=== PATIENT | male | born 1940 | race Caucasian/White ===

== ENCOUNTER → 2020-08-06 10:37 | Outpatient (BNVA) | payer MEDICARE, SELFPAY | PROVIDERS: Family Provider Internal Medicine; PCP Internal Medicine; Visit Provider Specialist | DX: M79.641 Pain in right hand (principal); M79.642 Pain in left hand; R20.0 Anesthesia of skin; G56.03 Carpal tunnel syndrome, bilateral upper limbs | CPT/HCPCS: 95910 ==

== ENCOUNTER 2022-01-29 12:43 | Outpatient (CLI) | payer MEDICARE, SELFPAY ==
--- NOTE | 2022-01-29 13:02 | CT_ITS ---
WS: [id number] CT ABDOMEN PELVIS TECHNIQUE: Contrast-enhanced CT of the abdomen and pelvis with coronal and sagittal reformatted image s. CLINICAL INFORMATION: GROSS HEMATURIA COMPARISON: None. DLP: 1191.[address] scans at [facility] use at least one of these dose optimization techniques: automated e xposure control; mA and/or kV adjustment per patient size (includes targeted exams where dose is matc hed to clinical indication); or iterative reconstruction. FINDINGS: Enhancing heterogeneous enlarged prostate measuring 3.8 x 4.6 cm. Indentation on the bladder. Recomme nd correlation PSA. Sigmoid diverticulosis. No definite evidence of acute diverticulitis. LEFT femora l hernia containing a small knuckle of herniated sigmoid colon and accompanying omental fat. No evide nce of inflammatory stranding or edema. No associated fluid. Narrowing of the sigmoid colon with a he rnia neck. Hernia neck measures approximately 12 mm. Recommend surgical consultation. Small fat-containing LEFT inguinal hernia. No evidence of high-grade small or large bowel obstruction. Mild diffuse fatty infiltration of the liver with heterogeneous parenchymal enhancement. Gallbladder is contracted. Moderate esophageal hiatal hernia. Cardiomegaly. Lung bases are well aerated. Adrenal glands are normal. Fatty atrophy of the pancreas. Normal renal parenchymal enhancement. No hydronephr osis. Normal caliber abdominal aorta. Retroaortic LEFT renal vein. Small bladder diverticulum along the LEFT dorsal lateral bladder measuring 10 x 14 mm. This can be fu rther evaluated with cystoscopy. Additional small LEFT anterior urinary bladder hernia along the prox imal inguinal canal. Incidental fat-containing umbilical hernia. Disc space narrowing worse at L3-L5. CT/CT abdomen pelvis w con* [id number] IMPRESSION: 1. Dorsal lateral bladder diverticulum measuring 14 x 10 mm. 2. Heterogeneous mild prostate enlargement measuring 3.8 x 4.5 cm with mild th ickening of the seminal vesicles. Recommend correlation PSA. 3. Small LEFT urinary bladder hernia with tenting along the LEFT proximal ingu inal canal. Recommend correlation with hematuria. 4. LEFT femoral hernia containing a small knuckle of herniated sigmoid colon a nd herniated omental fat. Mild tethering of the sigmoid colon in this area. No evidence of acute strangulation. Recommend correlation LEFT inguinal pain and s urgical consultation. 5. Normal renal parenchymal enhancement. No hydronephrosis. No obstructing zehra al or ureteral calculi. 6. Sigmoid diverticulosis. No evidence of acute diverticulitis. 7. Diffuse fatty infiltration liver with coarse hepatic parenchyma. Recommend correlation with liver function tests. 8. Moderate esophageal hiatal hernia.
[2022-01-29] MEDS: iohexol 350 mg/mL 100 mL Btl IV (14:58)
[2022-01-29 14:59] LABS: Blood Urea Nitrogen 28 mg/dL (8-23)
== END 2022-01-29 12:44 | disposition home or self-care (01) ==
PROVIDERS: PCP Internal Medicine; Visit Provider Internal Medicine
DX: R31.0 Gross hematuria (principal); K44.9 Diaphragmatic hernia without obstruction or gangrene; K76.0 Fatty (change of) liver, not elsewhere classified; K57.30 Diverticulosis of large intestine without perforation or abscess without bleeding; K41.90 Unilateral femoral hernia, without obstruction or gangrene, not specified as recurrent; N32.89 Other specified disorders of bladder; N40.0 Benign prostatic hyperplasia without lower urinary tract symptoms; N32.3 Diverticulum of bladder
CPT/HCPCS: 74177; 82565; 84520

== ENCOUNTER 2022-03-24 15:17 | Outpatient (CLI) | payer MEDICARE, SELFPAY | END 2022-03-24 15:18 | disposition home or self-care (01) | LOC: LAB 15:29 | PROVIDERS: PCP Internal Medicine; Visit Provider Nurse Practitioner Family | DX: R31.0 Gross hematuria (principal) | CPT/HCPCS: 87086 ==

== ENCOUNTER 2022-06-26 15:11 | Emergency (ER) | payer MEDICARE, SELFPAY ==
[2022-06-26 15:16] VITALS: BMI 28.2
--- NOTE | 2022-06-26 15:18 | W.ED.WEAKNES ---
HPI - Weakness General: Chief complaint: General Medical Stated complaint: weakness/stroke symptoms Time Seen by Provider: 06/26/22 15:18 History of Present Illness: Mr. Briggs is an 81-year-old gentleman on Eliquis presenting to the emergency department for strokelike symptoms. He reports a few days ago noting some back pain with radicular radiation down the leg however this resolved. This morning at perhaps 1130 or noon he had onset of abnormal feeling in his right foot like it was heavy and also his right arm like it felt odd. This initially was moderate to severe however is mildly improved though still present. Denies similar episodes in the past. No other specific changes in health, exacerbating, or alleviating factors identified. Onset (ago): hour(s) Duration: improved Location: RUE and RLE Severity: moderate Quality: other Relieving factors: none Exacerbating factors: none Review of Systems General: Reports: 10 or more systems reviewed and unremarkable except in HPI and below PFSH ED PFSH: Medical History (Updated 07/09/22 @ 00:15 by Francisco Murray MD) HLD (hyperlipidemia) HTN (hypertension) Surgical History (Updated 07/09/22 @ 00:16 by Francisco Murray MD) No significant past surgical history Physical Exam Const: COMMON NORMALS: alert GENERAL APPEARANCE: cooperative and well developed HENMT: COMMON NORMALS: normocephalic and atraumatic HEAD & SCALP: normocephalic and atraumatic THROAT: posterior oropharynx normal Eye: COMMON NORMALS: conjunctivae normal CONJUNCTIVA: Yes conjunctivae normal SCLERA: sclerae normal Neck/C-Spine: COMMON NORMALS: supple GENERAL: Yes trachea midline Resp: COMMON NORMALS: normal respiratory effort EFFORT & INSPECTION: Yes able to speak in complete sentences Cardio: COMMON NORMALS: regular rate and regular rhythm RATE: regular rate RHYTHM: regular rhythm GI: COMMON NORMALS: Soft to palpation PALPATION: Yes Soft to palpation and No Tenderness to palpation present (GI) PERCUSSION: normal to percussion Extremity: GENERAL: Yes normal exam except as noted and No edema Neuro: COMMON NORMALS: moves all extremities SENSORIUM/ORIENTATION: Yes alert and No Orientation impaired OTHER: Subjective right upper extremity weakness, subjective right lower extremity weakness, 75% sensation right lower extremity compared to contralateral side Psych: COMMON NORMALS: mental status grossly normal and Normal thought process present THOUGHT PROCESS: Normal thought process present Course Vital Signs: Vital signs: Vital Signs Temperature 97.1 F L 06/26/22 15:24 Pulse Rate 65 06/26/22 19:26 Respiratory Rate 16 06/26/22 19:26 Blood Pressure 154/98 06/26/22 19:26 Pulse Oximetry 94 06/26/22 19:26 Oxygen Delivery Me thod 06/26/22 18:00 MDM - Weakness Medical Decision Making 81-year-old gentleman presenting with generalized weakness and strokelike symptoms. Subjective findings on exam, low NIHSS score and patient is on Eliquis as a contraindication for tPA. EKG notable for paced rhythm Labs with unremarkable hematologic and metabolic panel. Negative range 2-hour delta troponin. Hematuria present. Chest x-ray with no lobar consolidation or pneumothorax. CT/CTA with no evidence of hemorrhage or mass, there is no large vessel stenosis or occlusion intracranially, mild stenosis of the internal carotids discussed with patient. Upon reevaluation patient feels back to normal. Most likely etiology of symptoms is TIA. I offered admission which she declined. I will plan to initiate statin for mention of future strokes and the patient continues medications. The results of ED evaluation were discussed with the patient including prescriptions and/or symptomatic cares (if applicable) including appropriate and responsible use, followup plan, and return precautions. The patient verbalized understanding and felt safe for discharge. Medical Records I reviewed the patient's medical records. Lab Data I reviewed the patient's lab results. 06/26/22 15:35 06/26/22 15:35 Radiology Impressions Chest X-Ray 06/26/22 15:28 Impression: Cardiomegaly and atherosclerosis. Head/Neck CTA 06/26/22 15:28 IMPRESSION: No large vessel stenosis or occlusion. IMPRESSION: Mild stenosis at the origins of the internal carotid arteries. No severe stenosis or occlusion. REFERENCES: NASCET CRITERIA. The degree of stenosis in the cervical segment of the internal carotid artery is based on NASCET criteria. Normal is no stenosis. Mild is less than 50% stenosis. Moderate is 50-69% stenosis. Severe is 70% to 99% stenosis. Total occlusion is no detectable patent lumen. Laboratory Results WBC 7.4 10^3/uL (4.0-10.0) 06/26/22 15:35 RBC 5.17 10^6/uL (4.1-5.3) 06/26/22 15:35 Hgb 14.8 g/dL (11.7-16.6) 06/26/22 15:35 Hct 45.6 % (42.0-52.0) 06/26/22 15:35 MCV 88.2 fl (80-94) 06/26/22 15:35 MCH 28.6 pg (28.0-34.0) 06/26/22 15:35 MCHC 32.5 g/dL (30.0-36.0) 06/26/22 15:35 RDW 12.2 % (12.1-15.1) 06/26/22 15:35 Plt Count 211 10^3/cmm (130-400) 06/26/22 15:35 MPV 9.4 fL (7.4-10.4) 06/26/22 15:35 Neut % (Auto) 63.5 % 06/26/22 15:35 Lymph % (Auto) 23.2 % 06/26/22 15:35 [place] % (Auto) 11.3 % 06/26/22 15:35 Eos % (Auto) 1.3 % 06/26/22 15:35 Baso % (Auto) 0.4 % 06/26/22 15:35 Neut # (Auto) 4.71 10^3/uL (1.8-7.7) 06/26/22 15:35 Lymph # (Auto) 1.7 10^3/uL (0.8-4.8) 06/26/22 15:35 [place] # (Auto) 0.8 10^3/uL (0.2-0.9) 06/26/22 15:35 Eos # (Auto) 0.1 10^3/uL (0.0-0.8) 06/26/22 15:35 Baso # (Auto) 0.0 10^3/uL (0.0-0.1) 06/26/22 15:35 Nucleated RBC % (auto) 0 % 06/26/22 15:35 Nucleated RBCs # 0.0 /100WBC 06/26/22 15:35 PT 16.50 SECONDS (12.1-14.9) H 06/26/22 15:35 INR 1.28 (0.8-1.2) H 06/26/22 15:35 APTT 32.6 SECONDS (23.9-36.7) 06/26/22 15:35 Sodium 136 mmol/L (136-145) 06/26/22 15:35 Potassium 4.6 mmol/L (3.5-5.1) 06/26/22 15:35 Chloride 97 mmol/L (98-107) L 06/26/22 15:35 Carbon Dioxide 26 mmol/L (22-29) 06/26/22 15:35 Anion Gap 17.6 (5-19) 06/26/22 15:35 BUN 16 mg/dL (8-23) 06/26/22 15:35 Creatinine 1.0 mg/dL (0.7-1.2) 06/26/22 15:35 GFR Calculation Not Reportable 06/26/22 15:35 Glucose 107 mg/dL (65-115) 06/26/22 15:35 Calculated Osmolality 284 mOsm/kg (285-295) L 06/26/22 15:35 Calcium 9.1 mg/dL (8.5-10.5) 06/26/22 15:35 Total Bilirubin 0.7 mg/dL (0.15-1.2) 06/26/22 15:35 AST 26 U/L (0-40) 06/26/22 15:35 ALT 17 U/L (0-41) 06/26/22 15:35 Alkaline Phosphatase 70 U/L (40-130) 06/26/22 15:35 Troponin T Baseline 21 ng/L (0-15) H 06/26/22 15:35 Troponin T 120 Minute 21.20 ng/L (0-15) H 06/26/22 17:40 Delta Troponin T 0.20 ABS# (0-10) 06/26/22 17:40 C-Reactive Protein 5.0 mg/L (0.0-4.9) H 06/26/22 15:35 NT-Pro-B Natriuret Pep 1949 pg/mL (0-450) H 06/26/22 15:35 Total Protein 6.8 g/dL (6.6-8.7) 06/26/22 15:35 Albumin 4.3 g/dL (3.5-5.2) 06/26/22 15:35 Globulin 2.5 g/dL (1.3-4.6) 06/26/22 15:35 Procalcitonin 0.02 ng/mL (0-0.5) 06/26/22 15:35 TSH 1.95 uIU/mL (0.27-4.20) 06/26/22 15:35 Urine Color Yellow (Yellow) 06/26/22 17:00 Urine Appearance Hazy (CLEAR) A 06/26/22 17:00 Urine pH 6 (5-7) 06/26/22 17:00 Ur Specific [place] 1.015 (1.005-1.030) 06/26/22 17:00 Urine Protein Neg (Negative) 06/26/22 17:00 Urine Glucose (UA) Norm (Normal) 06/26/22 17:00 Urine Ketones Negative (Negative) 06/26/22 17:00 Urine Blood 3+ (Negative) H 06/26/22 17:00 Urine Nitrate Negative (Negative) 06/26/22 17:00 Urine Bilirubin Neg (Negative) 06/26/22 17:00 Urine Urobilinogen Norm mg/dL (Negative) 06/26/22 17:00 Ur Leukocyte Esterase Negative (Negative) 06/26/22 17:00 Urine RBC 25-40 /hpf (0-2) H 06/26/22 17:00 Urine WBC 0-4 /hpf (0-5) H 06/26/22 17:00 Ur Squamous Epith Cells 0-4 /hpf (0-5) H 06/26/22 17:00 Amorphous Sediment Not Reportable 06/26/22 17:00 Urine Bacteria Trace /hpf (NONE) 06/26/22 17:00 Discharge Plan Discharge Patient Disposition: Home Clinical Impression: Brain TIA, Hematuria, Carotid artery disease Condition: Stable Prescriptions: New atorvastatin 80 mg tablet 80 mg PO QPM Qty: 30 2RF No Action pantoprazole 40 mg tablet,delayed release (DR/EC) 40 mg PO BID multivitamin Tablet 1 tab PO DAILY gabapentin 100 mg capsule 200 mg PO BID fluticasone propionate [Flonase Allergy Relief] 50 mcg/actuation spray,suspension 1 spray intranasal BID Rx Instructions: administer into each nostril tamsulosin 0.4 mg capsule 0.4 mg PO QPM metoprolol tartrate 25 mg tablet 25 mg PO DAILY Eliquis 5 mg tablet 5 mg PO DAILY Discharge Orders: Discharge ED (Routine); Ordered 06/26/22 Ordered By: Francisco Murray Referrals: Alyssa Nassar MD [Primary Care Provider] - Discharge Diet: Usual diet Discharge Activity: Resume usual activity Patient Instructions: Atorvastatin (By mouth), Transient Ischemic Attack (ED), Hematuria (ED) Activity Restrictions/Additional Instructions: Thank you for visiting the emergency department. You were seen and evaluated for strokelike symptoms. The exact cause of the symptoms is unclear however given resolution is most likely secondary to a transient ischemic attack. As discussed there is some risk of recurrence or permanent stroke however you are electing to have further outpatient evaluation. I will message case management for follow-up with neurology. I will start you on atorvastatin. Also take 81 mg aspirin, be cautious as this can increase bleeding risk with Eliquis. You do have evidence of blood in your urine which should be evaluated in the outpatient setting. Return to the emergency department for any new neurologic symptoms or anything else that you are concerned about and feel needs emergency department evaluation. Coding Level of Care Code ED Pull Out Operator for Ramu Abdi
[2022-06-26 15:21] VITALS: BP 165/98; PULSE 65; RESP 16; O2SAT 98
[2022-06-26 15:24] VITALS: TEMP 36.2
--- NOTE | 2022-06-26 15:28 | XR_ITS ---
WS: [id number] Portable AP upright chest, 06/26/2022 Clinical Data: stroke like symptoms Comparison: None. Findings: No nodules, masses or effusions are seen. The heart is enlarged. The pulmonary vascularity is not increased. No pneumonia or pneumothorax is seen. There is a single lead pacemaker in good posi tion. The aortic arch and descending thoracic aorta shows calcification and tortuosity. There are mable gical clips at the gastroesophageal junction. XR/XR chest 1V portable [id number] Impression: Cardiomegaly and atherosclerosis.
--- NOTE | 2022-06-26 15:28 | CTR_ITS ---
PROCEDURE INFORMATION: Exam: CTA Head With Contrast, Arteriography Exam date and time: 06/26/2022 4:42 PM Age: 81 years old Clinical indication: Patient HX: PT C/O right sided weakness; Heavy right foot; SOB; Stroke like symptoms; Additional info: Rue/rle weakness TECHNIQUE: Imaging protocol: Computed tomographic angiography of the head with contrast. Exam focused on the arteries. 3D rendering (Not supervised by radiologist): MIP and/or 3D reconstructed images were created by the technologist. Radiation optimization: All CT scans at this facility use at least one of these dose optimization techniques: automated exposure control; mA and/or kV adjustment per patient size (includes targeted exams where dose is matched to clinical indication); or iterative reconstruction. Contrast material: OMNI 350; Contrast volume: 100 ml; Contrast route: INTRAVENOUS (IV); Other protocol: This patient has received [address] and 0 known cardiac nuclear medicine studies in the 12 months prior to the current study. COMPARISON: No relevant prior studies available. RADIATION DOSE METRICS: Total DLP (mGy-cm): 1050.65 FINDINGS: ANTERIOR CIRCULATION: Right internal carotid artery: Intracranial segment is patent with no significant stenosis. No aneurysm. Right middle cerebral artery: No occlusion or significant stenosis. No aneurysm. Right anterior cerebral artery: No occlusion or significant stenosis. No aneurysm. Left internal carotid artery: Intracranial segment is patent with no significant stenosis. No aneurysm. Left middle cerebral artery: No occlusion or significant stenosis. No aneurysm. Left anterior cerebral artery: No occlusion or significant stenosis. No aneurysm. POSTERIOR CIRCULATION: Right vertebral artery: No occlusion or significant stenosis. No aneurysm. Left vertebral artery: No occlusion or significant stenosis. No aneurysm. Basilar artery: No occlusion or significant stenosis. No aneurysm. Right posterior cerebral artery: No occlusion or significant stenosis. No aneurysm. Left posterior cerebral artery: No occlusion or significant stenosis. No aneurysm. Brain: No hemorrhage. No edema. Moderate diffuse cerebral atrophy and mild sequela of chronic small vessel ischemic disease. No mass effect. Cerebral ventricles: No ventriculomegaly. Bones/joints: Unremarkable. No acute fracture. Soft tissues: Unremarkable. PROCEDURE INFORMATION: Exam: CTA Neck With Contrast Exam date and time: 06/26/2022 4:42 PM Age: 81 years old Clinical indication: Patient HX: PT C/O right sided weakness; Heavy right foot; SOB; Stroke like symptoms; Additional info: Rue/rle weakness TECHNIQUE: Imaging protocol: Computed tomographic angiography of the neck with contrast. 3D rendering (Not supervised by radiologist): MIP and/or 3D reconstructed images were created by the technologist. Radiation optimization: All CT scans at this facility use at least one of these dose optimization techniques: automated exposure control; mA and/or kV adjustment per patient size (includes targeted exams where dose is matched to clinical indication); or iterative reconstruction. Contrast material: OMNI 350; Contrast volume: 100 ml; Contrast route: INTRAVENOUS (IV); Other protocol: This patient has received [address] and 0 known cardiac nuclear medicine studies in the 12 months prior to the current study. COMPARISON: CR XR chest 1V portable [id number] 06/26/2022 3:53 PM RADIATION DOSE METRICS: Total DLP (mGy-cm): 1050.65 FINDINGS: Right common carotid artery: No stenosis. No dissection or occlusion. Right internal carotid artery: Mild stenosis at the origin of the internal carotid artery. No dissection or occlusion. Right external carotid artery: No occlusion or stenosis of the origin. Left common carotid artery: No stenosis. No dissection or occlusion. Left internal carotid artery: Mild stenosis at the origin of the internal carotid artery. No dissection or occlusion. Left external carotid artery: No occlusion or stenosis of the origin. Right vertebral artery: No stenosis. No dissection or occlusion. Left vertebral artery: No stenosis. No dissection or occlusion. Soft tissues: Normal. No significant soft tissue swelling. Bones/joints: No acute fracture. CT/CT angio headneck* [id number] IMPRESSION: No large vessel stenosis or occlusion. IMPRESSION: Mild stenosis at the origins of the internal carotid arteries. No severe stenosis or occlusion. REFERENCES: NASCET CRITERIA. The degree of stenosis in the cervical segment of the internal carotid artery is based on NASCET criteria. Normal is no stenosis. Mild is less than 50% stenosis. Moderate is 50-69% stenosis. Severe is 70% to 99% stenosis. Total occlusion is no detectable patent lumen.
--- NOTE | 2022-06-26 15:29 | ECG_ITS ---
[facility] Test Date: 2022-06-26 Pat Name: Tyler Briggs Department: Room: Gender: Male [employer]is [employer] C[employer] Hand: : 1940 Requested By: Francisco Murray Order Number: [id number] Parks MD: Genesis Butler M.D. Measurements Intervals [place] Rate: 65 P: 0 OK: 0 QRS: -84 QRSD: 186 T: 82 QT: 451 QTc: 472 Interpretive Statements ELECTRONIC VENTRICULAR PACEMAKER ABNORMAL RHYTHM ECG Compared to ECG 06/25/2016 13:29:23 Sinus bradycardia no longer present Sinus arrhythmia no longer present Left-axis deviation no longer present Electronically Signed On 06-26-2022 16:42:41 SMOKE TESTER by Genesis Butler M.D. [id number]
[2022-06-26 15:48] LABS: Basophils % 0.4 %; Eosinophils # 0.1 10^3/uL (0.0-0.8); Eosinophils % 1.3 %; Hematocrit 45.6 % (42.0-52.0); Hemoglobin 14.8 g/dL (11.7-16.6); Lymphocytes # 1.7 10^3/uL (0.8-4.8); Lymphocytes % 23.2 %; Mean Corpuscular HGB Conc 32.5 g/dL (30.0-36.0); Mean Corpuscular Hemoglobin 28.6 pg (28.0-34.0); Mean Corpuscular Volume 88.2 fl (80-94); Mean Platelet Volume 9.4 fL (7.4-10.4); Monocytes # 0.8 10^3/uL (0.2-0.9); Monocytes % 11.3 %; Neutrophils # 4.71 10^3/uL (1.8-7.7); Neutrophils % 63.5 %; Nucleated Red Blood Cells % 0 %; Platelet Count 211 10^3/cmm (130-400); Red Blood Count 5.17 10^6/uL (4.1-5.3); Red Cell Distribution Width 12.2 % (12.1-15.1); White Blood Count 7.4 10^3/uL (4.0-10.0)
[2022-06-26 16:04] LABS: INR 1.28 (0.8-1.2)
[2022-06-26 16:05] LABS: Partial Thromboplastin Time 32.6 SECONDS (23.9-36.7)
[2022-06-26 16:07] LABS: Troponin(5th) Baseline 21 ng/L (0-15)
[2022-06-26 16:18] LABS: NT Pro B Type Natriuretic Pept 1949 pg/mL (0-450); Procalcitonin 0.02 ng/mL (0-0.5); Thyroid Stimulating Hormone 1.95 uIU/mL (0.27-4.20)
[2022-06-26 16:34] LABS: Alanine Aminotransferase 17 U/L (0-41); Albumin Level 4.3 g/dL (3.5-5.2); Alkaline Phosphatase 70 U/L (40-130); Anion Gap 17.6 (5-19); Aspartate Amino Transferase 26 U/L (0-40); Blood Urea Nitrogen 16 mg/dL (8-23); Calcium 9.1 mg/dL (8.5-10.5); Carbon Dioxide 26 mmol/L (22-29); Chloride 97 mmol/L (98-107); Globulin 2.5 g/dL (1.3-4.6); Glucose 107 mg/dL (65-115); Osmolality Calculated 284 mOsm/kg (285-295); Potassium 4.6 mmol/L (3.5-5.1); Sodium 136 mmol/L (136-145); Total Bilirubin 0.7 mg/dL (0.15-1.2); Total Protein 6.8 g/dL (6.6-8.7)
[2022-06-26 16:40] VITALS: BP 133/81; PULSE 65; RESP 16; O2SAT 96
[2022-06-26] MEDS: iohexol 350 mg/mL 500 mL Btl (per mL) IV (16:49)
[2022-06-26 18:00] VITALS: BP 171/98; PULSE 65; O2SAT 97
[2022-06-26 18:06] LABS: Add Urine Culture? Yes; Add Urine Microscopic? YES; Bacteria Urine TRACE /hpf; Bilirubin Urine Neg (Negative); Blood Urine 3+ (Negative); Glucose Urine UA Norm (Normal); Ketones Urine Negative (Negative); Leukocyte Esterase Urine Negative (Negative); Nitrate Urine Negative (Negative); Protein Urine Neg (Negative); RBC Urine 25-40 /hpf (0-2); Specific Gravity, Urine 1.015 (1.005-1.030); Squamous Epithelial Cell Urine 0-4 /hpf (0-5); Urine Appearance Hazy (CLEAR); Urine Color Yellow (Yellow); Urobilinogen Urine Norm (Negative); WBC Urine 0-4 /hpf (0-5); pH Urine 6 (5-7)
--- NOTE | 2022-06-26 18:40 | ECG_ITS ---
[facility] Test Date: 2022-06-26 Pat Name: Tyler Briggs Department: Room: Gender: Male Tearoom Host: : 1940 Requested By: Francisco Murray Order Number: [id number] Parks MD: Genesis Butler M.D. Measurements Intervals [place] Rate: 65 P: 0 NC: 0 QRS: -79 QRSD: 180 T: 81 QT: 468 QTc: 488 Interpretive Statements ELECTRONIC VENTRICULAR PACEMAKER ABNORMAL RHYTHM ECG Compared to ECG 06/26/2022 15:35:49 No significant changes Electronically Signed On 06-26-2022 23:20:32 CIVIL TECHNICIAN by Genesis Butler M.D. [id number]
[2022-06-26 19:26] VITALS: BP 154/98; PULSE 65; RESP 16; O2SAT 94
== END 2022-06-26 19:53 | disposition home or self-care (01) ==
PROVIDERS: Emergency Provider Emergency Medicine; PCP Internal Medicine
DX: G45.9 Transient cerebral ischemic attack, unspecified (principal); I77.89 Other specified disorders of arteries and arterioles; R31.9 Hematuria, unspecified; Z79.01 Long term (current) use of anticoagulants; I10 Essential (primary) hypertension; E78.5 Hyperlipidemia, unspecified
CPT/HCPCS: 70496; 70498; 71045; 80053; 81001; 83880; 84145; 84443; 84484; 85025; 85610; 85730; 86140; 87086; 93005; 99285; Q9967

== ENCOUNTER 2022-09-10 14:22 | Oncology outpatient (recurring) (ONCR) | payer MEDICARE, SELFPAY ==
--- NOTE | 2022-09-10 14:57 | N.ONRAD NP_ITS ---
Radiation Oncology Consultation Patient Name: Tyler Briggs Date of : 1940 Date of Service: 09/10/2022 Attending Physician: Edouard Sullivan M.D. Tyler Briggs was seen in consultation this morning at the request of Quang Diaz M.D. for consideration of prostate radiotherapy in the management of a recently diagnosed high-risk prostate cancer. He was evaluated in December of 2021 for gross hematuria. A cystoscopy revealed papillary fronds still prostatic fossa and verumontanum. 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 A pelvic MRI ordered on July 07, 2022 described a 4.1 cm x 3.5 cm x 4.8 cm prostate gland (29 cc). Diffuse abnormal signal was reported throughout the entire peripheral zone bilaterally (PI-RADS 5) and a TURP defect was noted. The patient was evaluated for radiotherapy treatment options. I discussed the patient's AJCC clinical stage IIIC (T1bN0) high-risk prostate cancer and the National Comprehensive Cancer Network Guidelines recommending androgen deprivation therapy and external beam radiotherapy with or without brachytherapy. These recommendations were based upon several trials (RTOG 9202, EORTC 25146, and DART/GICOR). The EORTC study demonstrated superior survival with long-term ADT. Subgroup analyses of the RTOG and DART/GICOR trials confirmed an overall survival advantage in high-risk patients. I will request a Pylarify scan to complete the patient's staging. In the absence of metastatic disease, I would endorse a 7/2-week course of radiotherapy which will be implemented following neoadjuvant hormonal therapy. A planning CT scan with contrast will be acquired prior to implementation of radiation treatment to delineate the clinical target volumes. I reviewed the potential toxicities of pelvic radiotherapy. The patient has verbalized understanding would like to proceed as recommended. The patient's medical treatment plan was discussed with Quang Diaz M.D. Signed by: Edouard Sullivan 09/10/2022 2:55:50 PM
== END 2022-10-07 23:59 | disposition home or self-care (01) ==
LOC: ONCMED 14:23
PROVIDERS: PCP Internal Medicine; Visit Provider Radiology Radiation Oncology
DX: C61 Malignant neoplasm of prostate (principal)
CPT/HCPCS: 99205

== ENCOUNTER 2022-10-23 10:58 | Oncology outpatient (recurring) (ONCR) | payer MEDICARE, SELFPAY ==
--- NOTE | 2022-10-23 11:24 | ONCRAD EPV_ITS ---
Radiation Oncology Follow-Up Note Patient Name: Tyler Briggs Date of : 1940 Date of Service: 10/23/2022 Attending Physician: Edouard Sullivan M.D. Tyler Briggs returned to my office this morning to review recent imaging. He was evaluated in December of 2021 for gross hematuria. A cystoscopy revealed papillary fronds still prostatic fossa and verumontanum. 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 A pelvic MRI ordered on July 07, 2022 described a 4.1 cm x 3.5 cm x 4.8 cm prostate gland (29 cc). Diffuse abnormal signal was reported throughout the entire peripheral zone bilaterally (PI-RADS 5) and a TURP defect was noted. A Pylarify scan completed on October 19, 2022 identified level activity within the prostate and abnormal uptake involving the right pedicle of T10 that was consistent with a metastatic deposit. I discussed with Mr. Briggs the National Comprehensive Cancer Network Guidelines for prostate cancer patients with a low metastatic burden. Therapeutic options include ADT, ADT with an androgen biosynthesis inhibitor/receptor antagonist, or ADT with EBRT to the primary tumor. I will refer him to medical oncology for ADT. I would anticipate a 4 week course of hypofractionated prostate radiotherapy sequential to neoadjuvant hormonal therapy. Prior to commencement of radiotherapy, a planning CT scan will be acquired to delineate the clinical target volume. I also discussed potential adverse events related to radiotherapy. The patient has verbalized understanding would like to proceed as advised. Signed by: Dr. Edouard Sullivan 10/23/2022 11:23:13 AM
[2022-10-23 12:19] LABS: Testosterone Total 401.8 ng/dL (193-740)
== END 2022-11-06 23:59 | disposition home or self-care (01) ==
PROVIDERS: PCP Internal Medicine; Visit Provider Radiology Radiation Oncology
DX: C61 Malignant neoplasm of prostate (principal)
CPT/HCPCS: 36415; 84153; 84403

== ENCOUNTER → 2024-03-17 07:59 | Outpatient (BNVA) | payer MEDICARE, SELFPAY | PROVIDERS: PCP Internal Medicine; Visit Provider Thoracic Surgery (Cardiothoracic Vascular Surgery) | DX: I96 Gangrene, not elsewhere classified (principal); L97.822 Non-pressure chronic ulcer of other part of left lower leg with fat layer exposed | CPT/HCPCS: 11042; 99213 ==

== ENCOUNTER → 2024-03-24 08:41 | Outpatient (BNVA) | payer MEDICARE, SELFPAY | PROVIDERS: PCP Internal Medicine; Visit Provider Thoracic Surgery (Cardiothoracic Vascular Surgery) | DX: I96 Gangrene, not elsewhere classified (principal); L97.821 Non-pressure chronic ulcer of other part of left lower leg limited to breakdown of skin | CPT/HCPCS: 97597 ==

== ENCOUNTER → 2024-03-31 09:15 | Outpatient (BNVA) | payer MEDICARE, SELFPAY | PROVIDERS: PCP Internal Medicine; Visit Provider Thoracic Surgery (Cardiothoracic Vascular Surgery) | DX: I96 Gangrene, not elsewhere classified (principal); I87.2 Venous insufficiency (chronic) (peripheral); L97.821 Non-pressure chronic ulcer of other part of left lower leg limited to breakdown of skin | CPT/HCPCS: 97597 ==

== ENCOUNTER → 2024-04-14 09:52 | Outpatient (BNVA) | payer MEDICARE, SELFPAY | PROVIDERS: PCP Internal Medicine; Visit Provider Thoracic Surgery (Cardiothoracic Vascular Surgery) | DX: I96 Gangrene, not elsewhere classified (principal); I87.2 Venous insufficiency (chronic) (peripheral); L97.821 Non-pressure chronic ulcer of other part of left lower leg limited to breakdown of skin | CPT/HCPCS: 97597 ==

== ENCOUNTER → 2024-04-21 10:10 | Outpatient (BNVA) | payer MEDICARE, SELFPAY | PROVIDERS: PCP Internal Medicine; Visit Provider Thoracic Surgery (Cardiothoracic Vascular Surgery) | DX: Z09 Encounter for follow-up examination after completed treatment for conditions other than malignant neoplasm (principal); Z87.2 Personal history of diseases of the skin and subcutaneous tissue | CPT/HCPCS: 99212 ==